=== PATIENT | female | born 1975 | race Caucasian/White ===

== ENCOUNTER 2018-04-01 10:46 | Emergency (ER) | payer BC ==
[2018-04-01 11:04] VITALS: BP 137/89; PULSE 93; TEMP 98.5; BMI 32.3
[2018-04-01] MEDS ORDERED: KETOROLAC TROMETHAMINE 60 MG/2 ML VIAL IM ONE (11:58)
[2018-04-01] MEDS ORDERED: KETOROLAC TROMETHAMINE 60 MG/2 ML VIAL ONE (11:59)
--- NOTE | 2018-04-01 12:47 | PDOC ---
History of Present Illness - General Chief Complaint: Pain Stated Complaint: FELL DOWN STAIRS Time Seen by Provider: 04/01/18 11:53 - History of Present Illness Initial Comments: 43-year-old female without comorbidities presents for evaluation of back and left-sided rib pain after a fall down a flight of steps 3 days ago. She denies radicular symptoms. She describes her pain is achy and constant at times exacerbated with activity minimally relieved with rest. 04/01/18 12:42 Past History - Past Medical History Allergies/Adverse Reactions: Allergies Allergy/AdvReac Type Severity Reaction Status Date / Time No Known Allergies Allergy Verified 04/01/18 10:59 Home Medications: Ambulatory Orders Cyclobenzaprine HCl [Flexeril 10 mg] 10 mg PO HS PRN #10 tablet 04/01/18 - Suicide/Smoking/Psychosocial Hx Smoking History: Current every day smoker Number of Cigarettes Smoked Daily: 20 Information on smoking cessation initiated: Yes Hx Alcohol Use: No Drug/Substance Use Hx: No Review of Systems - Review of Systems Musculoskeletal: Yes: See HPI, Back Pain, Muscle Pain All Other Systems: Reviewed and Negative *Physical Exam - Vital Signs Last Vital Signs Temp Pulse Resp BP Pulse Ox 98.5 F 93 H 20 137/89 97 04/01/18 11:01 04/01/18 11:01 04/01/18 11:01 04/01/18 11:01 04/01/18 11:01 - Physical Exam Comments: HEAD: NC/AT EYES: Conjuntiva clear Ears: Canals and TM's normal NOSE: No d/c THROAT: Moist mucous membrances, oral pharanx clear, uvula midline NECK: Supple without adenopathy CARDIAC: S1 S2 LUNGS: CTA Full and Equal breath sounds ABDOMEN: Soft NT ND MS: Full ROM in all joints without edema NEUROLOGIC: No gross sensory or motor deficits, NVID SKIN: Normal color and temperature no lesions or rashes There is left-sided paralumbar musculature spasm and tenderness. No midline tenderness. Mild left-sided rib tenderness. Around ribs 11 and 12. No gross sensorimotor deficits in bilateral lower extremities. She has 5 out of 5 strength. Thighs and calves are soft and nontender. 04/01/18 12:42 ED Treatment Course - RADIOLOGY Radiology Studies Ordered: Category Date Time Status CHEST PA & LAT [RAD] Stat Radiology 04/01/18 11:58 Taken PELVIS [RAD] Stat Radiology 04/01/18 11:58 Taken RIBS-LEFT SIDE [RAD] Stat Radiology 04/01/18 11:58 Taken SPINE-LUMBAR SACRAL [RAD] Stat Radiology 04/01/18 11:58 Taken - Medications Given in the ED: ED Medications Discontinued Medications Generic Name Dose Route Start Last Admin Trade Name Anuj PRN Reason Stop Dose Admin Ketorolac Tromethamine 60 mg 04/01/18 11:58 04/01/18 12:02 Toradol Injection - IM 04/01/18 11:59 60 mg ONCE ONE Administration Medical Decision Making - Medical Decision Making She is most likely a rib contusion and a lumbar spine contusion with associated muscle strains. I will place her on a course of Flexeril have her follow-up with orthopedic surgery for further evaluation and treatment options No NSAIDS secondary to gastric surgery single dose of Torodol in ER given for pain. 04/01/18 12:43 04/01/18 12:44 I do not appreciate any acute fractures on radiographs today. Radiographs of the lumbar spine lumbar sacral spine chest and ribs as well as pelvis were reviewed, multiple gastric clips from prior surgery are present 04/01/18 12:44 04/01/18 12:45 04/01/18 12:46 *DC/Admit/Observation/Transfer Diagnosis at time of Disposition: Rib contusion, Contusion, Strain, lumbosacral - Discharge Dispostion Disposition: HOME Condition at time of disposition: Stable Decision to Admit order: No - Referrals Referrals: Roni Villarreal MD [Staff Physician] - - Patient Instructions Printed Discharge Instructions: Contusion, DI for Back Strain or Sprain Additional Instructions: Given you a prescription for muscle relaxer which should help with her back pain. Please follow-up with spine surgery for further evaluation and treatment options. Return to the emergency room should symptoms worsen or go unresolved. In addition to the muscle relaxer which is one tablet at night, it will make you sleepy. You may take Tylenol as directed. - Post Discharge Activity
== END 2018-04-01 12:52 | disposition home or self-care (01) ==
LOC: JERFT 10:46
PROC: 3E0233Z Introduction of Anti-inflammatory into Muscle, Percutaneous Approach (ICD-10-PCS; principal; 2018-04-01)
DX: S39.012A Strain of muscle, fascia and tendon of lower back, initial encounter (principal); S20.212A Contusion of left front wall of thorax, initial encounter; S30.0XXA Contusion of lower back and pelvis, initial encounter; W10.8XXA Fall (on) (from) other stairs and steps, initial encounter; Y93.89 Activity, other specified; Y92.89 Other specified places as the place of occurrence of the external cause; Y99.8 Other external cause status
CPT/HCPCS: 71046-TC-FY; 71101-TC-FY; 72100-TC-FY; 72170-TC-FY; 99281-25